=== PATIENT | female | born 1980 | race Two or more races ===

== ENCOUNTER 2017-11-04 22:27 | Inpatient (IN) | payer BC ==
[2017-11-05] MEDS ORDERED: BUTORPHANOL 1 MG INJ IV (03:00)
[2017-11-05] MEDS ORDERED: OXYTOCIN 30 UNITS/LR 500 ML IV ×3 (03:00→17:30)
[2017-11-05] MEDS ORDERED: BUTORPHANOL 2 MG INJ IV (03:00)
[2017-11-05] MEDS ORDERED: MISOPROSTOL 200 MCG TAB PR ×2 (03:00→17:30)
[2017-11-05] MEDS ORDERED: LIDOCAINE 1% (MPF) 30 ML INJ INJ (03:00)
[2017-11-05] MEDS ORDERED: METHYLERGONOVINE 0.2 MG INJ IM ×2 (03:00→17:30)
[2017-11-05] MEDS ORDERED: CARBOPROST 250 MCG INJ IM ×2 (03:00→17:30)
[2017-11-05] MEDS ORDERED: EPHEDrine SULFATE 50 MG/5 ML SYG (07:00)
[2017-11-05] MEDS: LACTATED RINGER'S 1,000 ML IV* ×4 (07:05→17:15)
[2017-11-05 07:15] LABS: ADD MAN DIFF? NO
[2017-11-05 07:20] LABS: BASOPHILS % 0.3 % (0.0-2.0); EOSINOPHILS # 0.1 10^3/ul (0.0-0.5); EOSINOPHILS % 0.9 % (0.0-7.0); HEMATOCRIT 39.5 % (37.0-47.0); LYMPHOCYTES # 1.3 10^3/ul (0.8-2.9); MEAN CORPUSCULAR HEMOGLOBIN 30.4 pg (29.0-33.0); MEAN CORPUSCULAR HGB CONC 32.9 g/dl (32.0-37.0); MEAN CORPUSCULAR VOLUME 92.3 fl (82.0-101.0); MEAN PLATELET VOLUME 10.3 fl (7.4-10.4); MONOCYTE # 0.7 10^3/ul (0.3-0.9); MONOCYTES % 7.5 % (0.0-11.0); NEUTROPHIL # 7.1 10^3/ul (1.6-7.5); NEUTROPHILS % 76.5 % (39.0-77.0); PLATELET COUNT 183 10^3/UL (140-415); RED BLOOD COUNT 4.28 10^6/ul (4.20-5.40); RED CELL DISTRIBUTION WIDTH 15.9 % (11.5-14.5)
[2017-11-05 07:20] LABS: WHITE BLOOD COUNT 9.2 10^3/ul (4.8-10.8)
[2017-11-05 07:46] LABS: PARTIAL THROMBOPLASTIN TIME 29.2 Sec (25.0-35.0)
[2017-11-05 07:57] LABS: PROTIME 12.2 Sec (11.9-14.9)
[2017-11-05 08:09] LABS: HEPATITIS B SURFACE ANTIGEN NEGATIVE (NEGATIVE)
[2017-11-05] MEDS ORDERED: FENTAnyl 2MCG/ML-ROPIV 0.2% 100 ML (09:57)
[2017-11-05] MEDS ORDERED: DIPHENHYDRAMINE 50 MG INJ IV ×2 (10:30→18:30)
[2017-11-05] MEDS ORDERED: HYDROmorphONE 0.5 MG/0.5 ML SYG IV (10:30)
[2017-11-05] MEDS ORDERED: ONDANSETRON 4 MG INJ IV ×2 (10:30→18:30)
[2017-11-05] MEDS ORDERED: FENTAnyl 2MCG/ML-ROPIV 0.2% 100 ML BAG EPI (10:30)
[2017-11-05] MEDS ORDERED: NALOXONE (0.4 MG/ML) INJ IV (10:30)
[2017-11-05 15:05] LABS: RAPID PLASMA REAGIN NONREACTIVE (NR)
[2017-11-05] MEDS: CEFAZOLIN 2 GM/50 ML (PMX) 50 ML IVPB (17:25)
[2017-11-05] MEDS ORDERED: CHLOROPROCAINE 3% (MPF) 20 ML INJ (17:28)
[2017-11-05] MEDS ORDERED: PHENYLephrine (100 MCG/ML) 5ML SYG ×2 (17:30→18:07)
[2017-11-05] MEDS ORDERED: OXYTOCIN 10 UNIT INJ (17:47)
[2017-11-05] MEDS ORDERED: FENTAnyl 50 MCG/ML VIAL (18:09)
[2017-11-05] MEDS ORDERED: morphine SULFATE/PF (10 MG/10 ML) INJ (18:11)
[2017-11-05] MEDS ORDERED: METOCLOPRAMIDE 10 MG INJ IV (18:30)
[2017-11-05] MEDS ORDERED: FENTAnyl 50 MCG/ML VIAL IV (18:30)
[2017-11-05] MEDS ORDERED: HYDROmorphONE 1 MG/5 ML IV SYRINGE IV ×3 (18:30)
[2017-11-05] MEDS ORDERED: KETOROLAC 30 MG INJ IV (18:30)
[2017-11-05] MEDS: KETOROLAC 30 MG INJ IV (18:40)
[2017-11-05] MEDS: OXYTOCIN 30 UNITS/LR 500 ML IV ×2 (18:42→22:47)
[2017-11-05] MEDS: FENTAnyl 50 MCG/ML VIAL IV (18:54)
[2017-11-05] MEDS: HYDROmorphONE 0.5 MG/0.5 ML SYG IV (21:27)
[2017-11-05] MEDS: IBUPROFEN 600 MG TAB PO (22:15)
[2017-11-05] MEDS: LACTATED RINGER'S 1,000 ML IV (22:15)
[2017-11-05] MEDS: KETOROLAC 30 MG INJ IM (22:15)
[2017-11-06] MEDS: KETOROLAC 30 MG INJ IV ×4 (00:52→17:12)
[2017-11-06] MEDS: LACTATED RINGER'S 1,000 ML IV ×3 (01:01→17:01)
[2017-11-06] MEDS: CEFAZOLIN 1 GM/50 ML (PMX) 50 ML IV ×3 (04:00→11:28)
[2017-11-06] MEDS: IBUPROFEN 600 MG TAB PO ×3 (06:00→23:45)
[2017-11-06] MEDS: KETOROLAC 30 MG INJ IM (07:47)
[2017-11-06 08:21] LABS: ADD MAN DIFF? NO
[2017-11-06 08:27] LABS: BASOPHILS % 0.3 % (0.0-2.0); EOSINOPHILS % 0.4 % (0.0-7.0); HEMATOCRIT 35.2 % (37.0-47.0); HEMOGLOBIN 11.4 g/dl (12.0-16.0); LYMPHOCYTES # 0.8 10^3/ul (0.8-2.9); LYMPHOCYTES % 7.9 % (15.0-51.0); MEAN CORPUSCULAR HEMOGLOBIN 30.2 pg (29.0-33.0); MEAN CORPUSCULAR HGB CONC 32.4 g/dl (32.0-37.0); MEAN CORPUSCULAR VOLUME 93.1 fl (82.0-101.0); MEAN PLATELET VOLUME 10.2 fl (7.4-10.4); MONOCYTE # 0.9 10^3/ul (0.3-0.9); MONOCYTES % 8.8 % (0.0-11.0); NEUTROPHIL # 8.4 10^3/ul (1.6-7.5); NEUTROPHILS % 82.1 % (39.0-77.0); PLATELET COUNT 142 10^3/UL (140-415); RED BLOOD COUNT 3.78 10^6/ul (4.20-5.40); RED CELL DISTRIBUTION WIDTH 15.6 % (11.5-14.5)
[2017-11-06 08:27] LABS: WHITE BLOOD COUNT 10.2 10^3/ul (4.8-10.8)
[2017-11-06] MEDS: CEFAZOLIN 1 GM/50 ML (PMX) 50 ML IVPB (20:00)
[2017-11-06] MEDS: HYDROCODONE/APAP (5/325) TAB PO (21:24)
[2017-11-07] MEDS: LACTATED RINGER'S 1,000 ML IV (01:01)
[2017-11-07] MEDS: HYDROCODONE/APAP (5/325) TAB PO ×4 (03:45→22:45)
[2017-11-07] MEDS: IBUPROFEN 600 MG TAB PO ×4 (05:49→23:59)
[2017-11-07] MEDS: LANOLIN 7 GM TUBE TOP (09:57)
[2017-11-07] MEDS: BISACODYL (EC) 5 MG TAB PO (21:38)
[2017-11-07] MEDS: DOCUSATE SODIUM 100 MG CAP PO (21:38)
[2017-11-07] MEDS: MAGNESIUM HYDROXIDE 30ML CUP PO (22:00)
[2017-11-08] MEDS: HYDROCODONE/APAP (5/325) TAB PO ×3 (02:28→14:43)
[2017-11-08] MEDS: IBUPROFEN 600 MG TAB PO ×3 (05:39→14:43)
[2017-11-08] MEDS: BISACODYL (EC) 5 MG TAB PO ×2 (05:40→14:00)
[2017-11-08] MEDS: MAGNESIUM HYDROXIDE 30ML CUP PO ×2 (05:40→14:00)
[2017-11-08] MEDS: DOCUSATE SODIUM 100 MG CAP PO (09:30)
[2017-11-09] MEDS ORDERED: IBUPROFEN 600 MG TAB PO (18:00)
== END 2017-11-08 16:05 | disposition home or self-care (01) | DRG 766 ==
LOC: OBT 22:27 → L-D 22:29 → PP1 11-05 22:19
PROVIDERS: Obstetrics & Gynecology
PROC: 10D00Z1 Extraction of Products of Conception, Low, Open Approach (ICD-10-PCS; principal; 2017-11-05 16:00)
DX: O34.211 Maternal care for low transverse scar from previous cesarean delivery (principal); Z3A.38 38 weeks gestation of pregnancy; Z37.0 Single live birth
CPT/HCPCS: 62319; 76815; 85025; 85610; 85730; 86592; 86850; 86900; 86901; 87340; 99464; J2400